=== PATIENT | male | born 2005 | race Caucasian/White ===

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

== ENCOUNTER 2025-01-25 22:35 | Emergency (ER) | payer BC ==
[2025-01-25 22:49] VITALS: BP 146/79; PULSE 65; RESP 17; TEMP 97.9
[2025-01-25] MEDS: ACETAMINOPHEN TAB 325 MG TAB PO STA (23:02)
--- NOTE | 2025-01-25 23:02 | ED ---
General Adult HPI - General Chief complaint: Skin/Abscess/Foreign Body Stated complaint: Sunburn Time Seen by Provider: 01/25/25 22:50 Source: patient Mode of arrival: ambulatory Limitations: no limitations - History of Present Illness Initial comments: 19-year-old male presenting with chief complaint of sunburn. Patient states that this happened on Sunday. This is a diffuse first-degree burn throughout most of the body. No blistering. Patient is having no fever or vomiting. He is just complaining about the level of pain. He has been taking ibuprofen and aloe. No other complaints. - Related Data Home Medications Medication Instructions Recorded Confirmed Acetaminophen [Children's Tylenol] 480 mg PO Q4H PRN 10/25/15 10/25/15 Albuterol Inhaler [Ventolin Hfa 2 puff INHALATION RT-Q6H PRN 10/25/15 10/25/15 Inhaler] Previous Rx's Medication Instructions Recorded Ondansetron Odt [Zofran ODT] 4 mg PO Q8HR PRN #5 tab 10/25/15 Acetaminophen-Codeine 300-30mg 1 tab PO Q6H PRN #12 tablet 12/08/17 [Tylenol #3] Ibuprofen [Motrin] 800 mg PO Q6HR #30 tab 03/30/23 Allergies Allergy/AdvReac Type Severity Reaction Status Date / Time No Known Allergies Allergy Verified 01/25/25 22:46 Review of Systems ROS Statement: Those systems with pertinent positive or pertinent negative responses have been documented in the HPI. ROS Other: All systems not noted in ROS Statement are negative. Past Medical History Past Medical History: Asthma History of Any Multi-Drug Resistant Organisms: None Reported Past Surgical History: Tonsillectomy Past Psychological History: No Psychological Hx Reported Smoking Status: Never smoker Past Alcohol Use History: None Reported Past Drug Use History: None Reported General Exam Limitations: no limitations General appearance: alert, in no apparent distress Head exam: Present: atraumatic, normocephalic, normal inspection Eye exam: Present: normal appearance, EOMI Neck exam: Present: normal inspection. Absent: meningismus Respiratory exam: Absent: respiratory distress Cardiovascular Exam: Present: regular rate Neurological exam: Present: alert, oriented X3 Psychiatric exam: Present: normal affect, normal mood Skin exam: Present: erythema (Sunburn) Course Vital Signs 07/06/25 22:47 Temperature 97.9 F Pulse Rate 65 Respiratory 17 Rate Blood Pressure 146/79 O2 Sat by Pulse 99 Oximetry Medical Decision Making - Medical Decision Making Was pt. sent in by a medical professional or institution (JAMARI Cooper, METAL STAMPING MACHINE OPERATOR, urgent care, hospital, or fci...) When possible be specific @ -No Did you speak to anyone other than the patient for history (EMS, parent, family, police, friend...)? What history was obtained from this source @ -No Did you review nursing and triage notes (agree or disagree)? Why? @ -I reviewed and agree with nursing and triage notes Were old charts reviewed (outside hosp., previous admission, EMS record, old EKG, old radiological studies, urgent care reports/EKG's, fci records)? Report findings @ -No old charts were reviewed Differential Diagnosis (chest pain, altered mental status, abdominal pain women, abdominal pain men, vaginal bleeding, weakness, fever, dyspnea, syncope, headache, dizziness, GI bleed, back pain, seizure, CVA, palpatations, mental health, musculoskeletal)? @ -Differential includes sunburn, allergic reaction, not an all-inclusive list EKG interpreted by me (3pts min.). @ -As above X-rays interpreted by me (1pt min.). @ -None done CT interpreted by me (1pt min.). @ -None done U/S interpreted by me (1pt. min.). @ -None done What testing was considered but not performed or refused? (CT, X-rays, U/S, labs)? Why? @ -None What meds were considered but not given or refused? Why? @ -None Did you discuss the management of the patient with other professionals (pro fessionals i.e. JAMARI Cooper, METAL STAMPING MACHINE OPERATOR, lab, RT, psych nurse, elementary school social worker, laundry bag punch operator, teacher, chemical instrumentation officer, disease case manager rn)? Give summary @ -No Was smoking cessation discussed for >3mins.? @ -No Was critical care preformed (if so, how long)? @ -No Were there social determinants of health that impacted care today? How? (Homelessness, low income, unemployed, alcoholism, drug addiction, transportation, low edu. Level, literacy, decrease access to med. care, [facility], rehab)? @ -No Was there de-escalation of care discussed even if they declined (Discuss DNR or withdrawal of care, Hospice)? DNR status @ -No What co-morbidities impacted this encounter? (DM, HTN, Smoking, COPD, CAD, Cancer, CVA, ARF, Chemo, Hep., AIDS, mental health diagnosis, sleep apnea, morbid obesity)? @ -None Was patient admitted / discharged? Hospital course, mention meds given and route, prescriptions, significant lab abnormalities, going to OR and other pertinent info. @ -19-year-old male presented chief complaint of diffuse sunburn. He is complaining of pain due to the burn. No fever nausea or vomiting. He is given Motrin and Tylenol here in the ER. Instructed to use aloe and calamine lotion as needed. Continue Motrin and Tylenol at home as needed. Follow-up with PCP. Report back to ER with any new or worsening symptoms. Discussed return parameters and answered all questions. Patient conveyed verbal understanding and agreed to the plan. I discussed this case in detail with my attending Dr. Vo Undiagnosed new problem with uncertain prognosis? @ -No Drug Therapy requiring intensive monitoring for toxicity (Heparin, Nitro, Insulin, Cardizem)? @ -No Were any procedures done? @ -No Diagnosis/symptom? @ -Sunburn Acute, or Chronic, or Acute on Chronic? @ -Acute Uncomplicated (without systemic symptoms) or Complicated (systemic symptoms)? @ -Uncomplicated Side effects of treatment? @ -No Exacerbation, Progression, or Severe Exacerbation? @ -No Poses a threat to life or bodily function? How? (Chest pain, [place], [place], pneumonia, PE, COPD, DKA, ARF, appy, cholecystitis, CVA, Diverticulitis, Homicidal, Suicidal, threat to staff... and all critical care pts) @ -Unlikely Disposition Clinical Impression: Sunburn Disposition: HOME SELF-CARE Condition: Good Instructions (If sedation given, give patient instructions): Sunburn (ED) Additional Instructions: Follow-up with PCP. Report back to ER with any new or worsening symptoms Is patient prescribed a controlled substance at d/c from ED?: No Referrals: None,Stated [Primary Care Provider] - 1-2 days Time of Disposition: 23:02
[2025-01-25] MEDS: IBUPROFEN 600 MG TAB PO STA (23:04)
== END 2025-01-25 23:26 | disposition home or self-care (01) ==
LOC: EC 22:35
DX: L55.9 Sunburn, unspecified (principal)
CPT/HCPCS: 99283